=== PATIENT | female | born 1985 | race Caucasian/White ===

== ENCOUNTER 2024-12-12 06:23 | Day surgery (SDC) | payer BC, SELFPAY | END 2024-12-12 09:07 | disposition home or self-care (01) | LOC: GI 06:23 | PROVIDERS: ATTENDING PHYSICIAN Surgery | DX: Z12.11 Encounter for screening for malignant neoplasm of colon (principal); K62.89 Other specified diseases of anus and rectum; Z83.719 Family history of colon polyps, unspecified | CPT/HCPCS: 45380; 88305 ==

== ENCOUNTER → 2025-01-04 15:12 | Outpatient (REF) | payer BC, SELFPAY | LOC: HWRAD 15:12 | PROVIDERS: ATTENDING PHYSICIAN Nurse Practitioner Family; FAMILY PHYSICIAN Internal Medicine | DX: M25.421 Effusion, right elbow (principal) | CPT/HCPCS: 73080 ==